=== PATIENT | male | born 1985 | race Two or more races ===

== ENCOUNTER 2019-08-12 22:26 | Emergency (ER) | payer SELFPAY ==
[~2019-08-12] VITALS: Ht 165.1 cm; Wt 86.4 kg
[2019-08-13 00:39] VITALS: BP 148/98
== END 2019-08-13 01:03 | disposition home or self-care (01) ==
LOC: EMS 22:26
DX: F69 Unspecified disorder of adult personality and behavior (principal); F43.9 Reaction to severe stress, unspecified; R45.851 Suicidal ideations; J45.909 Unspecified asthma, uncomplicated
CPT/HCPCS: Z7502